=== PATIENT | female | born 1960 | race Caucasian/White ===

== ENCOUNTER 2024-01-26 17:31 | Emergency (ER) | payer BC, SELFPAY ==
[2024-01-26 17:33] VITALS: BP 152/100
--- NOTE | 2024-01-26 18:05 | ED.GENMED ---
History of Present Illness
<Nieves Miller CUSTODIAL LABORER - Last Filed: 01/28/24 09:21>
General
Chief Complaint: Fever
Source: patient
Exam Limitations: none
Time Seen by Provider: 01/26/24 18:04
Nursing documentation reviewed up to this point in time: agreed with
Travel History
Have you had any contact with someone who has COVID-19?: No
Do you have any symptoms of coronavirus? Fever > 100 degrees, chills, cough, shortness of breath, sore throat, loss of taste or smell, muscle aches, or headache?: No
History of Present Illness
History of Present Illness:
63-year-old female with history of pneumonia, currently being treated for bladder cancer with immunotherapy which she had this morning and developed a fever of 102.5 afterwards at 4 p.m. with Tympanic thermometer. Has taken nothing for fever, on
arrival Temp 100.7.She states she's felt chilled all day but no rigors. Denies CP, SOB, headache. Denies abd pain, n/v/d/c.
Past History
<Nieves Miller CUSTODIAL LABORER - Last Filed: 01/28/24 09:21>
Past History
ED Past Surgical History: Gynecological
Social History
Tobacco: Former smoker
Alcohol: Daily (wine)
Personal:
Employment: Not employed
Review of Systems
<Nieves Miller, CUSTODIAL LABORER - Last Filed: 01/28/24 09:21>
Review of Systems
Allergies reviewed?: Yes
All Other Systems: ROS reviewed and negative except as documented in HPI and ROS
Constitutional: Reports fever and fatigue; Denies chills
EENT: Denies sore throat
Respiratory: Denies trouble breathing
Cardiac: Denies chest pain
ABD/GI: Denies abdominal pain, nausea, vomiting, diarrhea or anorexia
: Reports incontinence ('it just runs out of me'); Denies dysuria, flank pain or difficulty voiding
Musculoskeletal: Reports no symptoms
Neurological: Reports headache ('mild'); Denies dizzy, weakness or numbness
Phy Exam
<Nieves Miller, CUSTODIAL LABORER - Last Filed: 01/28/24 09:21>
Physical Exam
Physical Exam:
GENERAL: No acute distress. A&Ox3.
CONSTITUTIONAL: Temp 102.9 po now
EYES: PERRL, conjunctivae normal
Neck: Supple
ENMT: moist mucus membranes, Pharynx nl
RESPIRATORY: Regular respirations, nonlabored, lungs clear.
CARDIOVASCULAR: Regular rate and rhythm, no murmurs, no rubs.
GI: Soft, nontender, normal BS
MUSCULOSKELETAL: Moves with ease. Well perfused.
SKIN: Warm, dry, pink
PSYCH: Normal mood and affect. Well kept, interactive and appropriate
NEUROLOGIC: Awake, alert and oriented. No focal neurological deficits
Course
<Nieves Miller, CUSTODIAL LABORER - Last Filed: 01/28/24 09:21>
Orders/Labs/Results
Orders:
Orders
01/26/24 18:47
0.9% Sodium Chloride 1000 ml [Nss] 1,000 ml IV BOLUS
Acetaminophen [Tylenol] 1,000 mg PO NOW STA
01/26/24 18:57
COVID-19 Antigen Urgent
Source: Nasal Swab
Complete Blood Count/With Diff Urgent
Comprehensive Metabolic Panel Urgent
Lactic Acid Urgent
Urinalysis Reflex To Culture Urgent
Date Specimen was Collected: 01/26/24
Time Specimen was Collected: 18:53
Urine Microscopic Reflex Cult Urgent
Blood Culture Q30M
KENNEDY Source: Blood/Venous
Specimen Description:
Blood Culture Q30M
KENNEDY Source: Blood/Venous
Specimen Description:
Urine Culture Urgent
KENNEDY Source: U
Specimen Description:
Date Specimen was Collected: 01/26/24
Time Specimen was Collected: 18:53
01/26/24 20:00
Cefuroxime Axetil [Ceftin] 500 mg PO NOW STA
Abnormal Lab Results
01/26/24
18:57
WBC 13.1 H 10^3/uL
(4.8-10.8)
MPV 11.0 H fL
(7.4-10.4)
Abs Immat Gran (auto) 0.1 H 10^3/uL
(0-0.05)
Absolute Neuts (auto) 11.8 H 10^3/uL
(1.4-6.5)
Absolute Lymphs (auto) 0.6 L 10^3/uL
(1.2-3.4)
Neutrophils % 90.2 H %
(42.2-75.2)
Lymphocytes % 4.9 L %
(20.5-51.1)
BUN 21 H mg/dl
(7-17)
Ur Occult Blood Reflex 4+ A
(Negative)
Urine Nitrite (Reflex) Positive A
(Negative)
Urine Bilirubin 1+ A
(Negative)
Leukocyte Esterase Rfl 2+ A
(Negative)
Urine WBC (Reflex) 11-15 A /HPF
(0-5)
Urine Bacteria (Reflex) Moderate A
(Negative)
01/26/24 18:57
01/26/24 18:57
Vital Signs
Initial and Last Documented VS:
Initial Vital Signs
Temp Pulse Resp BP Pulse Ox
100.7 F H 85 20 152/100 98
01/26/24 17:33 01/26/24 17:33 01/26/24 17:33 01/26/24 17:33 01/26/24 17:33
Last Documented Vital Signs
Temp Pulse Resp BP Pulse Ox
100.5 F H 80 16 133/80 97
01/26/24 20:01 01/26/24 20:01 01/26/24 20:01 01/26/24 20:01 01/26/24 20:01
<Ranjit Nam, DO - Last Filed: 01/26/24 19:40>
Orders/Labs/Results
Orders:
Orders
01/26/24 18:47
0.9% Sodium Chloride 1000 ml [Nss] 1,000 ml IV BOLUS
Acetaminophen [Tylenol] 1,000 mg PO NOW STA
01/26/24 18:57
COVID-19 Antigen Urgent
Source: Nasal Swab
Complete Blood Count/With Diff Urgent
Comprehensive Metabolic Panel Urgent
Lactic Acid Urgent
Urinalysis Reflex To Culture Urgent
Date Specimen was Collected: 01/26/24
Time Specimen was Collected: 18:53
Urine Microscopic Reflex Cult Urgent
Blood Culture Q30M
KENNEDY Source: Blood/Venous
Specimen Description:
Blood Culture Q30M
KENNEDY Source: Blood/Venous
Specimen Description:
Urine Culture Urgent
KENNEDY Source: U
Specimen Description:
Date Specimen was Collected: 01/26/24
Time Specimen was Collected: 18:53
01/26/24 20:00
Cefuroxime Axetil [Ceftin] 500 mg PO NOW STA
Abnormal Lab Results
01/26/24
18:57
WBC 13.1 H 10^3/uL
(4.8-10.8)
MPV 11.0 H fL
(7.4-10.4)
Abs Immat Gran (auto) 0.1 H 10^3/uL
(0-0.05)
Absolute Neuts (auto) 11.8 H 10^3/uL
(1.4-6.5)
Absolute Lymphs (auto) 0.6 L 10^3/uL
(1.2-3.4)
Neutrophils % 90.2 H %
(42.2-75.2)
Lymphocytes % 4.9 L %
(20.5-51.1)
BUN 21 H mg/dl
(7-17)
Ur Occult Blood Reflex 4+ A
(Negative)
Urine Nitrite (Reflex) Positive A
(Negative)
Urine Bilirubin 1+ A
(Negative)
Leukocyte Esterase Rfl 2+ A
(Negative)
Urine WBC (Reflex) 11-15 A /HPF
(0-5)
Urine Bacteria (Reflex) Moderate A
(Negative)
01/26/24 18:57
01/26/24 18:57
Vital Signs
Initial and Last Documented VS:
Initial Vital Signs
Temp Pulse Resp BP Pulse Ox
100.7 F H 85 20 152/100 98
01/26/24 17:33 01/26/24 17:33 01/26/24 17:33 01/26/24 17:33 01/26/24 17:33
Last Documented Vital Signs
Temp Pulse Resp BP Pulse Ox
100.5 F H 80 16 133/80 97
01/26/24 20:01 01/26/24 20:01 01/26/24 20:01 01/26/24 20:01 01/26/24 20:01
<Nieves Mliler CUSTODIAL LABORER - Last Filed: 01/28/24 09:21>
MDM/Problems Addressed
MDM/Problems Addressed:
63-year-old female with history of pneumonia, currently being treated for bladder cancer with immunotherapy which she had this morning and developed a fever of 102.5 afterwards at 4 p.m. with Tympanic thermometer. Has taken nothing for fever, on
arrival Temp 100.7.She states she's felt chilled all day but no rigors. Denies CP, SOB, headache. Denies abd pain, n/v/d/c.
CBC: WBC 13.1 with elevated neutrophils
CMP:
UA: 4+ occult blood, nitrates positive 2+ leukocytes, WBC 11-15, moderate bacteria, indicative of UTI
Dr. Ng notified of visit and plan.
Pt will call Dr. Llanes tomorrow and inform
Rx for Ceftin sent to her pharmacy
Temp recheck: 100.5
BP recheck 133/80
Chronic conditions affecting care: Immunosuppressed (getting immunotherapy for bladder CA) and Cancer (bladder)
<Nieves Miller, CUSTODIAL LABORER - Last Filed: 01/28/24 09:21>
*Critical Care Note
Total Time (30-74mins, 75-104mins- exclusive of procedures): Not Applicable
ED Attending Note
<Nieves Miller, CUSTODIAL LABORER - Last Filed: 01/28/24 09:21>
-
Portions of this chart may have been created with voice recognition software.� Occasional wrong word or��sound alike� substitutions may have occurred due to the inherent limitations of voice recognition software.
<Ranjit Nam DO - Last Filed: 01/26/24 19:40>
ED Attending Note
Patient seen and examined by attending physician: Yes
I performed the substantive portion of visit, reviewed & personally made and approve the management plan that is documented in note by myself or JAZZ.: Yes
ED Attending Note:
BARREL MAKER examined independently agree with assessment and plan nontoxic female with bladder cancer status post instillation of immunotherapy to her bladder today by Dr. Llanes developed chills fevers urinary burning and frequency
Discharge Plan
Departure
Patient Disposition: Home (Routine Discharge)
Date of Disposition: 01/26/24
Time of Disposition: 19:51
Patient with high blood pressure during this ER visit?: No
Condition: Good
Discharge Problem:
UTI (urinary tract infection), Fever
Instructions: Fever, Adult (DC), Urinary Tract Infection, Adult ED
Prescriptions:
New
cefuroxime axetil 500 mg tablet
500 mg PO BID Qty: 14 0RF
No Action
bupropion HCl 300 MG tablet extended release 24 hr
300 mg PO DAILY
multivitamin Tablet
1 tab PO DAILY
cholecalciferol (vitamin D3) [Vitamin D3] 50 mcg (2,000 unit) Capsule
50 mcg PO DAILY
omega 8-[id number]-fish oil [Fish Oil] 1,200 (144-216) mg Capsule
1,200 - 2,400 cap PO DAILY
Referrals:
Paul Llanes MD [Active] - Tomorrow
Margy Del Angel CRNP [Family Provider] -
Activity Restrictions/Additional Instructions:
As we discussed, I sent a prescription to your pharmacy for the antibiotic Cefuroxime (Ceftin) to take 500 mg twice a day for [address] Llanes tomorrow and inform of this visit.
Drink plenty of water/fluids
Interventions
Interventions:
*Risk Screen - Suicide Last Done: 01/26/24 17:33
*General Assessment Last Done: 01/26/24 17:33
*Neglect/Abuse Screening Last Done: 01/26/24 17:33
ED- Fall Risk Assessment Last Done: 01/26/24 18:00
*ED COVID-19 Vaccine History Last Done: 01/26/24 20:38
*Nursing Disposition Last Done: 01/26/24 20:38
ED- Neurological Assessment Last Done: 01/26/24 18:00
ED-Skin Assessment Last Done: 01/26/24 18:00
Discharge Date and Time
Discharge Date/Time: 01/26/24 20:39
Print Language: OCCITAN
[2024-01-26] MEDS: TYLENOL 1000 MG PO (18:54)
[2024-01-26] MEDS: NSS 1000 IV (18:54)
[2024-01-26 19:10] LABS: Urine Albumin Negative (Neg - Trace); Urine Bilirubin 1+ (Negative); Urine Character Clear (Clear); Urine Color Yellow; Urine Glucose Negative (Negative); Urine Ketone Negative (Negative); Urine Leukocyte 2+ (Negative); Urine Nitrite Positive (Negative); Urine Occult Blood 4+ (Negative); Urine Urobilinogen 1+ (Neg - 1+)
[2024-01-26 19:11] LABS: % Basophils 0.5 % (0-2); % Eosinophils 0.3 % (0-6); % Immature Granulocytes 0.4 % (0-0.5); % Lymphocytes 4.9 % (20.5-51.1); % Monocytes 3.7 % (1.7-9.3); % Neutrophils 90.2 % (42.2-75.2); Absolute Basophils 0.1 10^3/uL (0-0.2); Absolute Immature Granulocytes 0.1 10^3/uL (0-0.05); Absolute Lymphocytes 0.6 10^3/uL (1.2-3.4); Absolute Monocytes 0.5 10^3/uL (0.1-0.6); Absolute Neutrophils 11.8 10^3/uL (1.4-6.5); Hematocrit 37.2 % (37.0-47.0); Hemoglobin 13.3 g/dL (12.0-16.0); Mean Corp Hgb Conc. 35.8 g/dL (33.0-37.0); Mean Corpuscular Hgb 29.2 pg (27.0-31.0); Mean Corpuscular Volume 81.6 fL (81.0-99.0); Nucleated Red Blood Cells % 0 %; Platelet Count 246 10^3/uL (130-400); Red Blood Cell Count 4.56 10^6/uL (4.20-5.40); Red Cell Dist. Width 12.5 % (11.5-14.5); White Blood Cell Count 13.1 10^3/uL (4.8-10.8)
[2024-01-26 19:20] LABS: Urine Bacteria Moderate (Negative); Urine Red Blood Cell 0-2 /HPF (0-2)
[2024-01-26 19:25] LABS: Lactic Acid 0.9 mmol/L (0.7-2.0)
[2024-01-26 19:35] LABS: COVID-19 Antigen Negative (Negative)
[2024-01-26 19:39] LABS: ALT (SGPT) 21 U/L (0-35); AST (SGOT) 35 U/L (14-36); Albumin 4.5 g/dl (3.5-5.0); Alkaline Phosphatase 119 U/L (38-126); Blood Urea Nitrogen 21 mg/dl (7-17); Calcium 9.9 mg/dl (8.4-10.2); Carbon Dioxide 24 mmol/L (22-30); Chloride 100 mmol/L (98-107); Glucose 91 mg/dl (70-99); Potassium 3.9 mmol/L (3.5-5.1); Sodium 135 mmol/L (135-145); Total Bilirubin 0.6 mg/dl (0.2-1.3); Total Protein 7.5 g/dl (6.3-8.2); eGFR > 60.00
[2024-01-26 20:01] VITALS: BP 133/80
[2024-01-26] MEDS: CEFTIN 500 MG PO (20:21)
== END 2024-01-26 20:39 | disposition home or self-care (01) ==
LOC: EMR 17:31
PROVIDERS: Registered Nurse; EMERGENCY PHYSICIAN Emergency Medicine; FAMILY PHYSICIAN Nurse Practitioner Adult Health
DX: R50.9 Fever, unspecified (principal); N39.0 Urinary tract infection, site not specified; Z11.52 Encounter for screening for COVID-19
CPT/HCPCS: 99284; 96360; 80053; 81003; 81015; 83605; 85025; 87040; 87086; 87811

== ENCOUNTER 2024-04-01 06:21 | Day surgery (SDC) | payer BC, SELFPAY ==
[2024-04-01] VITALS (8 sets, daily range): BP systolic 127–169; BP diastolic 74–95; BMI 24.6
[2024-04-01] MEDS: CYSVIEW KIT 100 MG INTRAVES (13:55)
[2024-04-01] MEDS: NORMOSOL-R 1000 IV (14:03)
[2024-04-01] MEDS: TYLENOL 1000 MG PO (15:43)
[2024-04-01] MEDS: Pyridium 200 MG PO (18:19)
[2024-04-01] MEDS: DETROL LA 4 MG PO (18:19)
== END 2024-04-01 18:57 | disposition home or self-care (01) ==
LOC: SDS 06:21
PROVIDERS: ATTENDING PHYSICIAN Surgery
PROC: 0TBB8ZX Excision of Bladder, Via Natural or Artificial Opening Endoscopic, Diagnostic (ICD-10-PCS; 2024-04-01)
DX: D30.3 Benign neoplasm of bladder (principal); Z01.810 Encounter for preprocedural cardiovascular examination; Z88.1 Allergy status to other antibiotic agents
CPT/HCPCS: 52204; 88307; 93005; A9589

== ENCOUNTER → 2024-07-06 06:50 | Outpatient (REF) | payer BC, SELFPAY | LOC: WDC 06:50 | PROVIDERS: ATTENDING PHYSICIAN Obstetrics & Gynecology Gynecology; FAMILY PHYSICIAN Nurse Practitioner Adult Health | DX: E04.2 Nontoxic multinodular goiter (principal); Z12.31 Encounter for screening mammogram for malignant neoplasm of breast | CPT/HCPCS: 76536; 77063; 77067 ==

== ENCOUNTER → 2025-07-07 07:01 | Outpatient (REF) | payer BC, SELFPAY | LOC: WDC 07:01 | PROVIDERS: ATTENDING PHYSICIAN Nurse Practitioner Adult Health; OTHER PHYSICIAN Internal Medicine Endocrinology, Diabetes & Metabolism | DX: Z12.31 Encounter for screening mammogram for malignant neoplasm of breast (principal); E04.2 Nontoxic multinodular goiter | CPT/HCPCS: 76536 ==

== ENCOUNTER → 2025-08-08 07:34 | Outpatient (REF) | payer BC, SELFPAY | LOC: RAD 07:34 | PROVIDERS: ATTENDING PHYSICIAN Nurse Practitioner Adult Health | DX: Z13.820 Encounter for screening for osteoporosis (principal) | CPT/HCPCS: 77080 ==